=== PATIENT | male | born 1975 | race Caucasian/White ===

== ENCOUNTER 2024-06-29 14:57 | Inpatient (IN) | payer OTHER ==
[2024-06-29] VITALS (22 sets, daily range): BP systolic 96–157; BP diastolic 56–113
[~2024-06-29] VITALS: Ht 175.3 cm; Wt 199.0 kg
[2024-06-29] MEDS ORDERED: VANCOMYCIN HCL 1 GM in SODIUM CHLORIDE 0.9% 500 ML IV ONE (15:15)
[2024-06-29] MEDS ORDERED: SODIUM CHLORIDE 0.9% 1,000 ML IV ONE ×2 (15:15→15:55)
[2024-06-29] MEDS ORDERED: IPRATROPIUM-Albuterol 0.5MG-2.5MG/3 ML NEB ONE ×2 (15:15)
[2024-06-29] MEDS ORDERED: dilTIAZem HCL 50 MG/10 ML SDV IV ONE (15:15)
[2024-06-29] MEDS ORDERED: SODIUM CHLORIDE 0.9% 250 ML IV PRN ×2 (15:15→19:05)
[2024-06-29] MEDS ORDERED: DILTIAZEM HCL 125 MG in SODIUM CHLORIDE 0.9% 100 ML IV ONE (15:15)
[2024-06-29] MEDS ORDERED: PIPERACILLIN Sodium-Tazobactam 3.375 GM in SODIUM CHLORIDE 0.9% 100 ML IV ONE (15:15)
[2024-06-29] MEDS ORDERED: methylPREDNISolone SODIUM SUCC 125 MG/2 ML SDV IV ONE (15:15)
[2024-06-29] MEDS ORDERED: SOTALOL HCL80 M1 PO (15:29)
[2024-06-29] MEDS ORDERED: JARDIANCE10 MG (15:29)
[2024-06-29 15:56] LABS: BASO% 0.3 % (0-3); EOS% 0.8 % (0-8); HEMATOCRIT 54.5 % (39.0-50.0); HEMOGLOBIN 17.2 g/dl (14.0-18.0); IMMATURE GRANULOCYTES 3.5 % (0.0-5.0); LYMPH% 17.4 % (15-41); MEAN CELL VOLUME 86.9 fL CALC (80.0-100.0); MEAN CORPUSCULAR HGB 27.4 pG CALC (26.0-32.0); MEAN CORPUSCULAR HGB CONC 31.6 g/dL CAL (32.0-36.0); MONO% 8.3 % (2-13); NEUT# 10.18 thou/uL (1.82-7.42); NEUT% 69.7 % (42-76); RED BLOOD COUNT 6.27 mill/uL (4.70-6.10)
[2024-06-29 16:17] LABS: ALBUMIN 3.6 g/dL (3.2-5.0); BILIRUBIN, TOTAL 1.2 mg/dL (0.2-1.3); CREATININE 0.7 mg/dL (0.7-1.3); TOTAL PROTEIN 6.8 g/dL (6.3-8.2)
[2024-06-29 16:19] LABS: POTASSIUM 5.3 mmol/l (3.5-5.1)
[2024-06-29] MEDS ORDERED: CLINDAMYCIN PHOSPHATE 50 ML IV ONE (16:25)
[2024-06-29] MEDS ORDERED: INSULIN REGULAR (HUMAN) 100 UNIT/ML INJ IV ONE (16:50)
[2024-06-29] MEDS ORDERED: FUROSEMIDE 40 MG/4 ML SDV IV ONE (18:35)
[2024-06-29] MEDS ORDERED: ACETAMINOPHEN 325 MG/TAB PO PRN (18:55)
[2024-06-29] MEDS ORDERED: Polyethylene Glycol 3350 17 GM/PKT PO PRN (18:55)
[2024-06-29] MEDS ORDERED: ONDANSETRON 4 MG/TAB ODT SL PRN (18:55)
[2024-06-29] MEDS ORDERED: oxyCODONE HCL 5 MG/TAB PO PRN (19:00)
[2024-06-29] MEDS ORDERED: HYDROmorphone HCL 2 MG/AMP IV PRN (19:00)
[2024-06-29] MEDS ORDERED: DILTIAZEM HCL 125 MG in SODIUM CHLORIDE 0.9% 100 ML IV PRN (19:05)
[2024-06-29 19:06] LABS: URINE BLOOD DIPSTICK Negative (NEGATIVE); URINE GLUCOSE - DIPSTICK 100 mg/dL (NEGATIVE); URINE KETONE Negative (NEGATIVE); URINE LEUK ESTERASE Negative (NEGATIVE); URINE NITRITE - DIPSTICK Negative (Negative); URINE PH 5.5 (4.5-8.0); URINE PROTEIN - DIPSTICK 100 mg/dL (NEG-TRACE); URINE SPECIFIC GRAVITY 1.025; URINE UROBILINOGEN - DIPSTICK >=8.0 E.U./dL (0.2)
[2024-06-29] MEDS ORDERED: CALCIUM GLUCONATE 2 GM in SODIUM CHLORIDE 0.9% 100 ML IV ONE (19:10)
[2024-06-29 19:11] LABS: URINE COLOR Dark yellow
[2024-06-29 19:13] LABS: URINE BACTERIA FEW hpf; URINE RBC 0-2 RBC/hpf (0-5); URINE WBC 0-2 WBC/hpf (0-5)
[2024-06-29 19:14] LABS: URINE AMORPH SEDIMENT FEW hpf (NONE-FER)
[2024-06-29 19:15] LABS: URINE HYALINE CAST MANY lpf (NONE-RARE)
[2024-06-29] MEDS ORDERED: ENOXAPARIN SODIUM 40 MG/0.4 ML SYR SC SCH (21:00)
[2024-06-29] MEDS ORDERED: METOPROLOL TARTRATE 25 MG/TAB PO SCH (21:00)
[2024-06-29] MEDS ORDERED: INSULIN LISPRO 100 UNITS/ML ML SC SCH (21:00)
[2024-06-29] MEDS ORDERED: METOPROLOL TARTRATE 5 MG/5 ML VIAL IV SCH (21:15)
[2024-06-29] MEDS ORDERED: VANCOMYCIN HCL 1 GM in SODIUM CHLORIDE 0.9% 250 ML IV SCH (22:00)
[2024-06-29 22:19] LABS: ALBUMIN 3.6 g/dL (3.2-5.0); BILIRUBIN, TOTAL 1.2 mg/dL (0.2-1.3); CREATININE 0.8 mg/dL (0.7-1.3); TOTAL PROTEIN 6.8 g/dL (6.3-8.2)
[2024-06-29 22:21] LABS: POTASSIUM 5.4 mmol/l (3.5-5.1)
[2024-06-30] VITALS (22 sets, daily range): BP systolic 84–151; BP diastolic 37–113
[2024-06-30] MEDS ORDERED: VANCOMYCIN HCL 1.5 GM in SODIUM CHLORIDE 0.9% 500 ML IV SCH ×2 (06:00→14:00)
[2024-06-30 07:16] LABS: BASO% 0.1 % (0-3); EOS% 0.1 % (0-8); HEMATOCRIT 57.3 % (39.0-50.0); HEMOGLOBIN 16.9 g/dl (14.0-18.0); IMMATURE GRANULOCYTES 2.9 % (0.0-5.0); LYMPH% 7.8 % (15-41); MEAN CORPUSCULAR HGB 27.4 pG CALC (26.0-32.0); MEAN CORPUSCULAR HGB CONC 29.5 g/dL CAL (32.0-36.0); MONO% 4.7 % (2-13); NEUT# 13.11 thou/uL (1.82-7.42); NEUT% 84.4 % (42-76); RED BLOOD COUNT 6.17 mill/uL (4.70-6.10); RED CELL DISTRI WIDTH 15.1 % (11.5-15.5)
[2024-06-30 07:25] LABS: ALBUMIN 3.8 g/dL (3.2-5.0); BILIRUBIN, TOTAL 0.9 mg/dL (0.2-1.3); CREATININE 0.9 mg/dL (0.7-1.3); MAGNESIUM 2.4 mg/dL (1.6-2.3); TOTAL PROTEIN 7.1 g/dL (6.3-8.2)
[2024-06-30 07:26] LABS: POTASSIUM 5.6 mmol/l (3.5-5.1)
[2024-06-30 07:32] LABS: MEAN CELL VOLUME 92.9 fL CALC (80.0-100.0)
[2024-06-30] MEDS ORDERED: ENOXAPARIN SODIUM 100 MG/ML SYR SC SCH (09:00)
[2024-06-30] MEDS ORDERED: FUROSEMIDE 40 MG/4 ML SDV IV SCH ×2 (09:00→21:00)
[2024-06-30] MEDS ORDERED: ENOXAPARIN SODIUM 40 MG/0.4 ML SYR SC SCH (09:00)
[2024-06-30] MEDS ORDERED: INSULIN GLARGINE 100 UNITS/ML SC SCH (09:00)
[2024-06-30] MEDS ORDERED: SODIUM ZIRCONIUM CYCLOSILICATE 10 GM PAK PO SCH (09:30)
[2024-06-30] MEDS ORDERED: PIPERACILLIN Sodium-Tazobactam 3.375 GM in SODIUM CHLORIDE 0.9% 100 ML IV SCH ×2 (12:00)
[2024-06-30] MEDS ORDERED: VANCOMYCIN HCL 1,500 MG in SODIUM CHLORIDE 0.9% 470 ML IV SCH (14:00)
[2024-06-30] MEDS ORDERED: amioDARONE HCl 450 MG in SODIUM CHLORIDE 250 ML IV ONE (20:25)
[2024-06-30] MEDS ORDERED: SODIUM CHLORIDE 0.9% 250 ML IV PRN (20:25)
[2024-06-30] MEDS ORDERED: METOPROLOL TARTRATE 25 MG/TAB PO SCH (21:00)
[2024-06-30] MEDS ORDERED: METOPROLOL TARTRATE 50 MG/TAB PO SCH (21:00)
[2024-06-30] MEDS ORDERED: amioDARONE HCl 450 MG in SODIUM CHLORIDE 250 ML IV PRN (21:05)
[2024-07-01] VITALS (16 sets, daily range): BP systolic 64–137; BP diastolic 47–116
[2024-07-01 05:46] LABS: HEMOGLOBIN 17.6 g/dl (14.0-18.0); MEAN CELL VOLUME 94.6 fL CALC (80.0-100.0); MEAN CORPUSCULAR HGB 27.3 pG CALC (26.0-32.0); MEAN CORPUSCULAR HGB CONC 28.9 g/dL CAL (32.0-36.0); RED BLOOD COUNT 6.45 mill/uL (4.70-6.10); RED CELL DISTRI WIDTH 15.7 % (11.5-15.5)
[2024-07-01 06:00] LABS: ALBUMIN 3.7 g/dL (3.2-5.0); BILIRUBIN, TOTAL 1.1 mg/dL (0.2-1.3); CREATININE 1.3 mg/dL (0.7-1.3); MAGNESIUM 2.4 mg/dL (1.6-2.3)
[2024-07-01 06:11] LABS: POTASSIUM 5.4 mmol/l (3.5-5.1)
[2024-07-01] MEDS ORDERED: VANCOMYCIN HCL 1,500 MG in SODIUM CHLORIDE 0.9% 470 ML IV SCH ×2 (08:00→20:00)
[2024-07-01] MEDS ORDERED: METOPROLOL TARTRATE 50 MG/TAB PO SCH (09:00)
[2024-07-01] MEDS ORDERED: CEFEPIME HYDROCHLORIDE 2 GM in SODIUM CHLORIDE 0.9% 100 ML IV SCH (10:00)
[2024-07-01] MEDS ORDERED: VANCOMYCIN HCL 1 GM in SODIUM CHLORIDE 0.9% 250 ML IV SCH (16:00)
[2024-07-01] MEDS ORDERED: RIVAROXABAN 20 MG TAB PO SCH (17:30)
[2024-07-01] MEDS ORDERED: AMIODARONE 200 MG/TAB PO SCH (22:51)
[2024-07-02] VITALS (13 sets, daily range): BP systolic 93–155; BP diastolic 66–88
[2024-07-02 07:53] LABS: HEMOGLOBIN 18.2 g/dl (14.0-18.0); MEAN CELL VOLUME 92.2 fL CALC (80.0-100.0); MEAN CORPUSCULAR HGB 26.8 pG CALC (26.0-32.0); MEAN CORPUSCULAR HGB CONC 29.1 g/dL CAL (32.0-36.0); RED BLOOD COUNT 6.79 mill/uL (4.70-6.10); RED CELL DISTRI WIDTH 16.3 % (11.5-15.5)
[2024-07-02 07:56] LABS: HEMATOCRIT 62.6 % (39.0-50.0)
[2024-07-02 08:05] LABS: ALBUMIN 3.8 g/dL (3.2-5.0); BILIRUBIN, TOTAL 0.9 mg/dL (0.2-1.3); CREATININE 1.2 mg/dL (0.7-1.3); MAGNESIUM 2.5 mg/dL (1.6-2.3); POTASSIUM 5.1 mmol/l (3.5-5.1); TOTAL PROTEIN 6.9 g/dL (6.3-8.2)
[2024-07-02] MEDS ORDERED: METOPROLOL TARTRATE 50 MG/TAB PO SCH (09:00)
[2024-07-02] MEDS ORDERED: IODINE 0.9 % GEL TOP SCH (17:00)
[2024-07-02] MEDS ORDERED: VANCOMYCIN HCL 1,250 MG in SODIUM CHLORIDE 0.9% 225 ML IV SCH (20:00)
[2024-07-03] VITALS (7 sets, daily range): BP systolic 110–144; BP diastolic 72–88
[2024-07-03 04:13] LABS: ALBUMIN 3.5 g/dL (3.2-5.0); BILIRUBIN, TOTAL 0.9 mg/dL (0.2-1.3); CREATININE 0.9 mg/dL (0.7-1.3); MAGNESIUM 2.4 mg/dL (1.6-2.3); POTASSIUM 4.5 mmol/l (3.5-5.1); TOTAL PROTEIN 6.6 g/dL (6.3-8.2)
[2024-07-03 04:14] LABS: HEMATOCRIT 57.1 % (39.0-50.0); MEAN CELL VOLUME 91.2 fL CALC (80.0-100.0); MEAN CORPUSCULAR HGB 27.2 pG CALC (26.0-32.0); MEAN CORPUSCULAR HGB CONC 29.8 g/dL CAL (32.0-36.0); RED BLOOD COUNT 6.26 mill/uL (4.70-6.10); RED CELL DISTRI WIDTH 14.7 % (11.5-15.5)
[2024-07-03] MEDS ORDERED: cefTRIAXone SODIUM 2 GM in SODIUM CHLORIDE 0.9% 100 ML IV SCH (12:00)
[2024-07-03] MEDS ORDERED: DOXYCYCLINE HYCLATE 100 MG in SODIUM CHLORIDE 0.9% 100 ML IV SCH (13:00)
[2024-07-03] MEDS ORDERED: DIGOXIN 0.5 MG/2 ML AMP IV ONE (22:20)
[2024-07-04] VITALS (11 sets, daily range): BP systolic 53–156; BP diastolic 37–134
[2024-07-04 06:06] LABS: HEMATOCRIT 57.3 % (39.0-50.0); HEMOGLOBIN 17.1 g/dl (14.0-18.0); MEAN CELL VOLUME 92.7 fL CALC (80.0-100.0); MEAN CORPUSCULAR HGB 27.7 pG CALC (26.0-32.0); MEAN CORPUSCULAR HGB CONC 29.8 g/dL CAL (32.0-36.0); RED BLOOD COUNT 6.18 mill/uL (4.70-6.10)
[2024-07-04 06:16] LABS: ALBUMIN 3.3 g/dL (3.2-5.0); BILIRUBIN, TOTAL 0.7 mg/dL (0.2-1.3); CREATININE 0.9 mg/dL (0.7-1.3); MAGNESIUM 2.2 mg/dL (1.6-2.3); POTASSIUM 4.3 mmol/l (3.5-5.1); TOTAL PROTEIN 6.4 g/dL (6.3-8.2)
[2024-07-04] MEDS ORDERED: DIGOXIN 0.5 MG/2 ML AMP IV SCH (10:30)
[2024-07-04] MEDS ORDERED: dilTIAZem HCL 60 MG/TAB PO SCH (15:30)
[2024-07-05] VITALS (8 sets, daily range): BP systolic 106–158; BP diastolic 60–94
[2024-07-05 05:26] LABS: HEMATOCRIT 57.3 % (39.0-50.0); HEMOGLOBIN 16.9 g/dl (14.0-18.0); MEAN CELL VOLUME 93.5 fL CALC (80.0-100.0); MEAN CORPUSCULAR HGB 27.6 pG CALC (26.0-32.0); MEAN CORPUSCULAR HGB CONC 29.5 g/dL CAL (32.0-36.0); RED BLOOD COUNT 6.13 mill/uL (4.70-6.10)
[2024-07-05 05:45] LABS: ALBUMIN 3.1 g/dL (3.2-5.0); BILIRUBIN, TOTAL 0.7 mg/dL (0.2-1.3); CREATININE 0.8 mg/dL (0.7-1.3); MAGNESIUM 2.2 mg/dL (1.6-2.3); POTASSIUM 4.2 mmol/l (3.5-5.1)
[2024-07-05] MEDS ORDERED: METOPROLOL TARTRATE 5 MG/5 ML VIAL IV PRN (08:55)
[2024-07-05] MEDS ORDERED: AMIODARONE 200 MG/TAB PO SCH (09:00)
[2024-07-06 05:22] VITALS: BP 92/63
[2024-07-06 05:36] LABS: BASO% 0.3 % (0-3); EOS% 1.5 % (0-8); HEMATOCRIT 56.8 % (39.0-50.0); HEMOGLOBIN 16.4 g/dl (14.0-18.0); IMMATURE GRANULOCYTES 0.6 % (0.0-5.0); LYMPH% 12.4 % (15-41); MEAN CELL VOLUME 92.8 fL CALC (80.0-100.0); MEAN CORPUSCULAR HGB 26.8 pG CALC (26.0-32.0); MEAN CORPUSCULAR HGB CONC 28.9 g/dL CAL (32.0-36.0); MONO% 9.5 % (2-13); NEUT# 10.28 thou/uL (1.82-7.42); NEUT% 75.7 % (42-76); RED BLOOD COUNT 6.12 mill/uL (4.70-6.10); RED CELL DISTRI WIDTH 14.8 % (11.5-15.5)
[2024-07-06 06:05] LABS: ALBUMIN 3.2 g/dL (3.2-5.0); ALKALINE PHOSPHATASE 80 u/l (38-126); BILIRUBIN, TOTAL 0.8 mg/dL (0.2-1.3); BUN 14 mg/dL (9-20); BUN/CREATININE RATIO 18 (12-20 (CALC)); CARBON DIOXIDE 29 mmol/l (22-30); CHLORIDE 102 mmol/l (95-108); CREATININE 0.8 mg/dL (0.7-1.3); ESTIMATED GFR 108 ML/MIN (>=90 (CALC)); MAGNESIUM 2.1 mg/dL (1.6-2.3); POTASSIUM 3.9 mmol/l (3.5-5.1); SGOT/AST 21 u/l (17-59)
[2024-07-06 06:06] LABS: SODIUM 124 mmol/l (137-146)
[2024-07-06] MEDS ORDERED: FUROSEMIDE 40 MG/4 ML SDV IV SCH (09:00)
[2024-07-06] MEDS ORDERED: CEFEPIME HYDROCHLORIDE 2 GM in SODIUM CHLORIDE 0.9% 100 ML IV SCH (10:00)
[2024-07-06 12:03] VITALS: BP 155/134
[2024-07-06 20:36] VITALS: BP 131/89
[2024-07-06 23:22] VITALS: BP 93/68
[2024-07-07 03:52] VITALS: BP 112/85
[2024-07-07 07:44] LABS: ALBUMIN 3.3 g/dL (3.2-5.0); BILIRUBIN, TOTAL 0.8 mg/dL (0.2-1.3); CREATININE 0.8 mg/dL (0.7-1.3); TOTAL PROTEIN 6.2 g/dL (6.3-8.2)
[2024-07-07] MEDS ORDERED: FUROSEMIDE 40 MG/4 ML SDV IV ONE (20:55)
[2024-07-07] MEDS ORDERED: predniSONE 20 MG/TAB PO SCH (21:00)
[2024-07-08 05:25] LABS: HEMATOCRIT 55.7 % (39.0-50.0); HEMOGLOBIN 16.4 g/dl (14.0-18.0); MEAN CELL VOLUME 92.4 fL CALC (80.0-100.0); MEAN CORPUSCULAR HGB 27.2 pG CALC (26.0-32.0); MEAN CORPUSCULAR HGB CONC 29.4 g/dL CAL (32.0-36.0); RED BLOOD COUNT 6.03 mill/uL (4.70-6.10); RED CELL DISTRI WIDTH 14.8 % (11.5-15.5)
[2024-07-08 05:45] LABS: ALBUMIN 3.5 g/dL (3.2-5.0); BILIRUBIN, TOTAL 0.8 mg/dL (0.2-1.3); CREATININE 0.8 mg/dL (0.7-1.3); MAGNESIUM 2.2 mg/dL (1.6-2.3); POTASSIUM 4.6 mmol/l (3.5-5.1); TOTAL PROTEIN 6.3 g/dL (6.3-8.2)
[2024-07-08 08:26] VITALS: BP 112/85
[2024-07-08] MEDS ORDERED: FUROSEMIDE 40 MG/4 ML SDV IV SCH (09:00)
[2024-07-08] MEDS ORDERED: LOPRESSOR 550 MG/TAB PO (12:16)
[2024-07-08] MEDS ORDERED: XARELTO20 MG PO (12:16)
[2024-07-08] MEDS ORDERED: VIBRAMYCIN100 M2 PO (12:17)
[2024-07-08] MEDS ORDERED: AMOX/K CLAV875 M1 PO (12:17)
[2024-07-08] MEDS ORDERED: MEDDOSEPAK PO (12:18)
[2024-07-08] MEDS ORDERED: CARDIZEM CD240 MG PO (12:21)
[2024-07-08] MEDS ORDERED: GLIPIZIDE ER5 M1 PO (12:21)
[2024-07-08] MEDS ORDERED: LASIX 40 MG TAB40 MG PO (12:22)
== END 2024-07-08 14:17 | disposition home or self-care (01) | DRG 193 ==
LOC: ED 14:57 → ED-I 18:30 → ED 18:52 → ED-I 18:52 → ICU 06-30 13:48
PROVIDERS: Family Medicine; Internal Medicine; ADMIT Internal Medicine; ATTEND Internal Medicine
DX: J18.9 Pneumonia, unspecified organism (principal); I50.33 Acute on chronic diastolic (congestive) heart failure; J96.01 Acute respiratory failure with hypoxia; J44.0 Chronic obstructive pulmonary disease with (acute) lower respiratory infection; L03.314 Cellulitis of groin; Z68.44 Body mass index [BMI] 60.0-69.9, adult; J44.1 Chronic obstructive pulmonary disease with (acute) exacerbation; E66.2 Morbid (severe) obesity with alveolar hypoventilation; E87.1 Hypo-osmolality and hyponatremia; I48.91 Unspecified atrial fibrillation; N49.2 Inflammatory disorders of scrotum; E11.65 Type 2 diabetes mellitus with hyperglycemia; I11.0 Hypertensive heart disease with heart failure; F17.200 Nicotine dependence, unspecified, uncomplicated; B96.20 Unspecified Escherichia coli [E. coli] as the cause of diseases classified elsewhere; T44.7X6A Underdosing of beta-adrenoreceptor antagonists, initial encounter; T38.3X6A Underdosing of insulin and oral hypoglycemic [antidiabetic] drugs, initial encounter; Z91.128 Patient's intentional underdosing of medication regimen for other reason; Z79.84 Long term (current) use of oral hypoglycemic drugs; Z20.822 Contact with and (suspected) exposure to COVID-19
CPT/HCPCS: J0282; J0612; J0692; J0696; J0736; J1160; J1650; J1815; J1940; J2543; J3370; Q9967